=== PATIENT | female | born 1965 | race Caucasian/White ===

== ENCOUNTER 2019-03-27 20:47 | Inpatient (IN) | payer MEDICAID ==
[~2019-03-27] VITALS: Ht 144.8 cm; Wt 38.8 kg
[2019-03-27 22:22] LABS: AMPHET/METH SCREEN,URINE NEGATIVE (NEGATIVE); BARBITURATE SCREEN, URINE NEGATIVE (NEGATIVE); BENZODIAZEPINES SCREEN,URINE POSITIVE (NEGATIVE); CANNABINOID SCREEN,URINE POSITIVE (NEGATIVE); COCAINE SCREEN,URINE NEGATIVE (NEGATIVE); METHADONE SCREEN, URINE NEGATIVE (NEGATIVE); OPIATE SCREEN,URINE NEGATIVE (NEGATIVE)
[2019-03-27 22:26] LABS: PHENCYCLIDINE SCREEN,URINE NEGATIVE (NEGATIVE)
[2019-03-27 22:39] LABS: BASOPHILS % (AUTO) 0.4 % (0.0-2.0); EOSINOPHILS % (AUTO) 0.2 % (1.0-6.0); HEMATOCRIT 36.3 % (36-46); HEMOGLOBIN 11.4 g/dL (12.0-16.0); LYMPHOCYTES # (AUTO) 2.5 K/uL (1.0-4.8); LYMPHOCYTES % (AUTO) 13.7 % (22.0-44.0); MEAN CORPUSCULAR HEMOGLOBIN 24.2 pg (26.0-34.0); MEAN CORPUSCULAR HGB CONC 31.5 G/dL (31.0-37.0); MEAN CORPUSCULAR VOLUME 77 fL (80-100); MONOCYTES # (AUTO) 1.8 K/uL (0.1-1.0); MONOCYTES % (AUTO) 9.8 % (2.0-9.0); NEUTROPHILS % (AUTO) 75.9 % (40.0-70.0); PLATELET COUNT (AUTO) 472 K/uL (150-450); RED BLOOD CELL COUNT(AUTO) 4.72 MIL/uL (4.00-5.20); RED CELL DISTRIBUTION WIDTH 14.5 % (11.5-14.5)
[2019-03-27] MEDS ORDERED: LORazepam 2 MG/ML VIAL IM ONE (22:45)
[2019-03-27] MEDS ORDERED: HALOPERIDOL LACTATE 5 MG/ML VIAL IM ONE (22:45)
[2019-03-27] MEDS ORDERED: DiphenhydrAMINE HCL 50 MG/ML VIAL IM ONE (22:45)
[2019-03-27 22:48] LABS: ANION GAP 13 mmol/L (8-16); CARBON DIOXIDE 25 mmol/L (22-29); CHLORIDE 95 mmol/L (98-107); CREATININE 1.61 mg/dL (0.60-1.30); GLOMERULAR FILTR. RATE CALC 33 mL/min (>60); GLUCOSE,RANDOM 110 mg/dL (70-110); POTASSIUM 5.4 mmol/L (3.5-5.1); SODIUM SERUM 133 mmol/L (136-145); UREA NITROGEN, BLOOD 34 mg/dL (7-18)
[2019-03-27 22:54] LABS: ALANINE AMINOTRANSFERASE 35 U/L (12-78); ALBUMIN 4.1 g/dL (3.4-5.0); ALKALINE PHOSPHATASE 127 U/L (46-116); ASPARTATE AMINOTRANSFERASE 47 U/L (15-37); BILIRUBIN,TOTAL 1.6 mg/dL (0.1-1.0); TOTAL PROTEIN, SERUM 8.8 g/dL (6.4-8.2)
[2019-03-28] MEDS ORDERED: LACTULOSE 20 GM/30 ML SOLUTION UDCUP PO ONE (00:15)
[2019-03-28 03:28] LABS: APPEARANCE,URINE CLEAR (CLEAR); BILIRUBIN,URINE NEGATIVE (NEGATIVE); GLUCOSE, URINE (UA) NEGATIVE (NEGATIVE); KETONES,URINE TRACE mg/dL (NEGATIVE); LEUKOCYTE ESTERASE ,URINE NEGATIVE (NEGATIVE); NITRATE,URINE NEGATIVE (NEGATIVE); OCCULT BLOOD,URINE NEGATIVE (NEGATIVE); PROTEIN,URINE NEGATIVE (NEGATIVE); UROBILINOGEN,URINE 0.2 mg/dL (<=1.0)
[2019-03-28] MEDS ORDERED: NICOTINE 14 MG/24 HOUR PATCH TD PRN (11:15)
[2019-03-28] MEDS ORDERED: ACETAMINOPHEN 325 MG TABLET PO PRN (11:15)
[2019-03-28] MEDS ORDERED: DOCUSATE SODIUM 100 MG CAPSULE PO PRN (11:15)
[2019-03-28] MEDS ORDERED: ONDANSETRON HCL 4 MG TABLET PO PRN (11:15)
[2019-03-28] MEDS ORDERED: LOPERAMIDE HCL 2 MG CAPSULE PO PRN (11:15)
[2019-03-28] MEDS ORDERED: MAG HYDROX/AL HYDROX/SIMETH ES 30 ML SUSPENSION UDCUP PO PRN (11:15)
[2019-03-28] MEDS ORDERED: GuaiFENesin/D-METHORPHAN [SUGAR-FREE] 200-20MG/10 ML SYRUP UDCUP PO PRN (11:15)
[2019-03-28] MEDS ORDERED: CloNIDine HCL 0.1 MG TABLET PO PRN (11:15)
[2019-03-28] MEDS ORDERED: PETROLATUM,WHITE 28 GM JELLY TP PRN (11:15)
[2019-03-28] MEDS ORDERED: ALBUTEROL SULFATE HFA 90 MCG/PUFF 8 GM INHALER IH PRN (11:15)
[2019-03-28] MEDS ORDERED: MAGNESIUM HYDROXIDE SUSPENSION 30 ML UDCUP PO PRN (11:15)
[2019-03-28 15:46] LABS: CALCIUM, TOTAL 9.5 mg/dL (8.8-10.5); CREATININE 1.05 mg/dL (0.60-1.30)
[2019-03-28 15:53] LABS: ALBUMIN 3.2 g/dL (3.4-5.0); BILIRUBIN,TOTAL 1.3 mg/dL (0.1-1.0); TOTAL PROTEIN, SERUM 7.8 g/dL (6.4-8.2)
[2019-03-28] MEDS: SODIUM CHLORIDE 1 GM TABLET PO SCH (19:13)
[2019-03-28 19:42] VITALS: BP 118/73
[2019-03-28] MEDS: CEPHALEXIN MONOHYDRATE 500 MG CAPSULE PO SCH (23:39)
[2019-03-29 06:03] LABS: HEMOGLOBIN A1C 6.2 % (4.5-6.2)
[2019-03-29 06:47] LABS: THYROID STIMULATING HORMONE 3.19 uIU/mL (0.36-3.74)
[2019-03-29] MEDS: CEPHALEXIN MONOHYDRATE 500 MG CAPSULE PO SCH ×3 (08:14→23:40)
[2019-03-29] MEDS: SULFAMETHOX/TRIMETH DS 800-160 MG/TABLET PO SCH ×2 (08:14→17:08)
[2019-03-29] MEDS: SODIUM CHLORIDE 1 GM TABLET PO SCH ×2 (09:00→17:08)
[2019-03-29 09:40] VITALS: BP 125/83
[2019-03-29] MEDS: LACTULOSE 20 GM/30 ML SOLUTION UDCUP PO SCH ×2 (09:50→17:08)
[2019-03-29] MEDS: LORazepam 2 MG TABLET PO PRN ×2 (09:50→17:12)
[2019-03-29 17:14] VITALS: BP 129/88
[2019-03-30 06:29] LABS: CALCIUM, TOTAL 8.7 mg/dL (8.8-10.5); CREATININE 0.98 mg/dL (0.60-1.30); POTASSIUM 3.9 mmol/L (3.5-5.1)
[2019-03-30] MEDS: SODIUM CHLORIDE 1 GM TABLET PO SCH ×2 (08:37→16:32)
[2019-03-30] MEDS: SULFAMETHOX/TRIMETH DS 800-160 MG/TABLET PO SCH ×2 (08:37→16:32)
[2019-03-30] MEDS: CEPHALEXIN MONOHYDRATE 500 MG CAPSULE PO SCH ×2 (08:37→16:32)
[2019-03-30] MEDS: LACTULOSE 20 GM/30 ML SOLUTION UDCUP PO SCH (08:37)
[2019-03-30] MEDS: LORazepam 2 MG TABLET PO PRN ×2 (08:41→18:08)
[2019-03-30 09:31] VITALS: BP 124/84
[2019-03-30] MEDS: OMEPRAZOLE 20 MG CAPSULE PO SCH (16:32)
[2019-03-30] MEDS: FUROSEMIDE 40 MG TABLET PO SCH (16:32)
[2019-03-30] MEDS: OLANZapine 5 MG TABLET PO SCH (16:32)
[2019-03-30] MEDS: SPIRONOLACTONE 50 MG TABLET PO SCH (16:32)
[2019-03-30 16:45] VITALS: BP 129/79
[2019-03-31] MEDS: CEPHALEXIN MONOHYDRATE 500 MG CAPSULE PO SCH ×3 (00:07→16:07)
[2019-03-31 05:51] LABS: BASOPHILS % (AUTO) 0.5 % (0.0-2.0); EOSINOPHILS % (AUTO) 1.4 % (1.0-6.0); HEMATOCRIT 35.3 % (36-46); HEMOGLOBIN 11.3 g/dL (12.0-16.0); LYMPHOCYTES # (AUTO) 2.5 K/uL (1.0-4.8); LYMPHOCYTES % (AUTO) 33.4 % (22.0-44.0); MEAN CORPUSCULAR HEMOGLOBIN 24.4 pg (26.0-34.0); MEAN CORPUSCULAR VOLUME 76 fL (80-100); MONOCYTES # (AUTO) 0.6 K/uL (0.1-1.0); MONOCYTES % (AUTO) 8.5 % (2.0-9.0); NEUTROPHILS # (AUTO) 4.1 K/uL (1.8-7.7); NEUTROPHILS % (AUTO) 56.2 % (40.0-70.0); PLATELET COUNT (AUTO) 331 K/uL (150-450); RED BLOOD CELL COUNT(AUTO) 4.63 MIL/uL (4.00-5.20); RED CELL DISTRIBUTION WIDTH 14.5 % (11.5-14.5)
[2019-03-31] MEDS: OLANZapine 5 MG TABLET PO SCH ×2 (08:13→16:08)
[2019-03-31] MEDS: OMEPRAZOLE 20 MG CAPSULE PO SCH ×2 (08:13→16:07)
[2019-03-31] MEDS: SODIUM CHLORIDE 1 GM TABLET PO SCH ×2 (08:13→16:07)
[2019-03-31] MEDS: URSODIOL 300 MG CAPSULE PO SCH (08:14)
[2019-03-31] MEDS: SPIRONOLACTONE 50 MG TABLET PO SCH ×2 (08:14→16:08)
[2019-03-31] MEDS: FUROSEMIDE 40 MG TABLET PO SCH ×2 (08:15→16:08)
[2019-03-31] MEDS: SULFAMETHOX/TRIMETH DS 800-160 MG/TABLET PO SCH ×2 (08:15→16:08)
[2019-03-31] MEDS: LACTULOSE 20 GM/30 ML SOLUTION UDCUP PO SCH (08:15)
[2019-03-31] MEDS: LORazepam 2 MG TABLET PO PRN ×2 (08:17→18:41)
[2019-03-31 13:35] VITALS: BP 112/58
[2019-03-31 16:00] VITALS: BP 122/73
[2019-03-31] MEDS: ZOLPIDEM TARTRATE 10 MG TABLET PO PRN (21:06)
[2019-04-01] MEDS: CEPHALEXIN MONOHYDRATE 500 MG CAPSULE PO SCH ×4 (00:08→23:39)
[2019-04-01] MEDS: LORazepam 2 MG TABLET PO PRN ×3 (06:18→18:08)
[2019-04-01] MEDS: URSODIOL 300 MG CAPSULE PO SCH (08:14)
[2019-04-01] MEDS: SODIUM CHLORIDE 1 GM TABLET PO SCH ×2 (08:14→16:13)
[2019-04-01] MEDS: SPIRONOLACTONE 50 MG TABLET PO SCH ×2 (08:15→16:13)
[2019-04-01] MEDS: OMEPRAZOLE 20 MG CAPSULE PO SCH ×2 (08:15→16:13)
[2019-04-01] MEDS: OLANZapine 5 MG TABLET PO SCH ×2 (08:15→16:12)
[2019-04-01] MEDS: FUROSEMIDE 40 MG TABLET PO SCH ×2 (08:15→16:13)
[2019-04-01] MEDS: SULFAMETHOX/TRIMETH DS 800-160 MG/TABLET PO SCH ×2 (08:22→16:13)
[2019-04-01] MEDS: LACTULOSE 20 GM/30 ML SOLUTION UDCUP PO SCH (08:23)
[2019-04-01 09:33] VITALS: BP 152/96
[2019-04-01 12:29] VITALS: BP 136/84
[2019-04-01 16:59] VITALS: BP 106/75
[2019-04-01 20:03] VITALS: BP 142/94
[2019-04-01] MEDS: IBUPROFEN 400 MG TABLET PO PRN (20:03)
[2019-04-01] MEDS: MELATONIN 5 MG TABLET PO SCH (20:04)
[2019-04-02] MEDS: LACTULOSE 20 GM/30 ML SOLUTION UDCUP PO SCH (08:27)
[2019-04-02] MEDS: CEPHALEXIN MONOHYDRATE 500 MG CAPSULE PO SCH ×2 (08:27→16:24)
[2019-04-02] MEDS: OMEPRAZOLE 20 MG CAPSULE PO SCH ×2 (08:28→16:25)
[2019-04-02] MEDS: URSODIOL 300 MG CAPSULE PO SCH (08:28)
[2019-04-02] MEDS: OLANZapine 5 MG TABLET PO SCH ×2 (08:28→16:25)
[2019-04-02] MEDS: SODIUM CHLORIDE 1 GM TABLET PO SCH ×2 (08:28→16:24)
[2019-04-02] MEDS: FUROSEMIDE 40 MG TABLET PO SCH ×2 (08:28→16:24)
[2019-04-02] MEDS: SULFAMETHOX/TRIMETH DS 800-160 MG/TABLET PO SCH ×2 (08:28→16:24)
[2019-04-02] MEDS: SPIRONOLACTONE 50 MG TABLET PO SCH ×2 (08:29→16:25)
[2019-04-02 09:11] VITALS: BP 110/73
[2019-04-02] MEDS: LORazepam 2 MG TABLET PO PRN ×2 (13:00→18:20)
[2019-04-02] MEDS: IBUPROFEN 400 MG TABLET PO PRN (15:56)
[2019-04-02 16:00] VITALS: BP 126/81
[2019-04-02] MEDS: MELATONIN 5 MG TABLET PO SCH (20:09)
[2019-04-03] MEDS: CEPHALEXIN MONOHYDRATE 500 MG CAPSULE PO SCH ×4 (00:17→23:58)
[2019-04-03 06:20] VITALS: BP 118/67
[2019-04-03] MEDS: IBUPROFEN 400 MG TABLET PO PRN (06:25)
[2019-04-03 07:25] LABS: CALCIUM, TOTAL 9.9 mg/dL (8.8-10.5); CREATININE 1.74 mg/dL (0.60-1.30); POTASSIUM 5.1 mmol/L (3.5-5.1)
[2019-04-03] MEDS: OMEPRAZOLE 20 MG CAPSULE PO SCH ×2 (08:37→16:21)
[2019-04-03] MEDS: OLANZapine 5 MG TABLET PO SCH ×2 (08:37→16:15)
[2019-04-03] MEDS: URSODIOL 300 MG CAPSULE PO SCH (08:37)
[2019-04-03] MEDS: SULFAMETHOX/TRIMETH DS 800-160 MG/TABLET PO SCH ×2 (08:37→16:21)
[2019-04-03] MEDS: SODIUM CHLORIDE 1 GM TABLET PO SCH ×2 (08:37→16:15)
[2019-04-03] MEDS: LACTULOSE 20 GM/30 ML SOLUTION UDCUP PO SCH (08:38)
[2019-04-03] MEDS: SPIRONOLACTONE 50 MG TABLET PO SCH ×2 (08:38→16:16)
[2019-04-03] MEDS: FUROSEMIDE 40 MG TABLET PO SCH (08:38)
[2019-04-03 09:10] VITALS: BP 118/60
[2019-04-03] MEDS: LORazepam 2 MG TABLET PO PRN ×3 (12:07→20:32)
[2019-04-03] MEDS: FUROSEMIDE 20 MG TABLET PO SCH (16:21)
[2019-04-03] MEDS: MELATONIN 5 MG TABLET PO SCH (20:33)
[2019-04-03 20:49] VITALS: BP 109/76
[2019-04-04] MEDS: ZOLPIDEM TARTRATE 10 MG TABLET PO PRN (00:09)
[2019-04-04] MEDS: LORazepam 2 MG TABLET PO PRN ×3 (06:37→14:53)
[2019-04-04] MEDS: URSODIOL 300 MG CAPSULE PO SCH (08:12)
[2019-04-04] MEDS: FUROSEMIDE 20 MG TABLET PO SCH ×2 (08:12→19:00)
[2019-04-04] MEDS: SPIRONOLACTONE 50 MG TABLET PO SCH ×2 (08:12→19:03)
[2019-04-04] MEDS: SULFAMETHOX/TRIMETH DS 800-160 MG/TABLET PO SCH ×2 (08:12→20:32)
[2019-04-04] MEDS: CEPHALEXIN MONOHYDRATE 500 MG CAPSULE PO SCH ×2 (08:13→19:00)
[2019-04-04] MEDS: OLANZapine 5 MG TABLET PO SCH (08:16)
[2019-04-04] MEDS: OMEPRAZOLE 20 MG CAPSULE PO SCH ×2 (08:16→19:00)
[2019-04-04] MEDS: LACTULOSE 20 GM/30 ML SOLUTION UDCUP PO SCH (08:19)
[2019-04-04] MEDS: SODIUM CHLORIDE 1 GM TABLET PO SCH ×2 (08:20→19:00)
[2019-04-04 09:43] VITALS: BP 120/78
[2019-04-04] MEDS: HALOPERIDOL 5 MG TABLET PO PRN ×2 (10:41→14:54)
[2019-04-04 16:00] VITALS: BP 113/78
[2019-04-04] MEDS: MELATONIN 5 MG TABLET PO SCH (20:32)
[2019-04-04] MEDS: OLANZapine 7.5 MG TABLET PO SCH (20:33)
[2019-04-05] MEDS: CEPHALEXIN MONOHYDRATE 500 MG CAPSULE PO SCH ×3 (00:05→16:15)
[2019-04-05] MEDS: LORazepam 2 MG TABLET PO PRN ×3 (06:45→16:15)
[2019-04-05] MEDS: HALOPERIDOL 5 MG TABLET PO PRN ×3 (06:47→16:15)
[2019-04-05] MEDS: SULFAMETHOX/TRIMETH DS 800-160 MG/TABLET PO SCH ×2 (08:38→17:09)
[2019-04-05] MEDS: OLANZapine 7.5 MG TABLET PO SCH ×2 (08:38→21:09)
[2019-04-05] MEDS: URSODIOL 300 MG CAPSULE PO SCH (08:38)
[2019-04-05] MEDS: FUROSEMIDE 20 MG TABLET PO SCH ×2 (08:38→17:09)
[2019-04-05] MEDS: SPIRONOLACTONE 50 MG TABLET PO SCH ×2 (08:38→17:09)
[2019-04-05] MEDS: LACTULOSE 20 GM/30 ML SOLUTION UDCUP PO SCH (08:39)
[2019-04-05] MEDS: OMEPRAZOLE 20 MG CAPSULE PO SCH ×2 (08:39→16:16)
[2019-04-05] MEDS: SODIUM CHLORIDE 1 GM TABLET PO SCH ×2 (08:49→16:15)
[2019-04-05 12:19] VITALS: BP 95/66
[2019-04-05 16:15] VITALS: BP 114/71
[2019-04-05] MEDS: MELATONIN 5 MG TABLET PO SCH (21:08)
[2019-04-06] MEDS: CEPHALEXIN MONOHYDRATE 500 MG CAPSULE PO SCH ×3 (00:06→16:12)
[2019-04-06 06:42] LABS: CALCIUM, TOTAL 9.1 mg/dL (8.8-10.5); CREATININE 1.32 mg/dL (0.60-1.30)
[2019-04-06] MEDS: URSODIOL 300 MG CAPSULE PO SCH (07:42)
[2019-04-06] MEDS: HALOPERIDOL 5 MG TABLET PO PRN ×2 (07:42→16:16)
[2019-04-06] MEDS: OMEPRAZOLE 20 MG CAPSULE PO SCH ×2 (07:42→16:12)
[2019-04-06] MEDS: SULFAMETHOX/TRIMETH DS 800-160 MG/TABLET PO SCH ×2 (07:42→16:12)
[2019-04-06] MEDS: OLANZapine 7.5 MG TABLET PO SCH ×2 (07:42→20:45)
[2019-04-06] MEDS: LORazepam 2 MG TABLET PO PRN ×3 (07:42→17:27)
[2019-04-06] MEDS: SPIRONOLACTONE 50 MG TABLET PO SCH ×2 (07:42→16:12)
[2019-04-06] MEDS: FUROSEMIDE 20 MG TABLET PO SCH ×2 (07:42→16:12)
[2019-04-06 08:00] VITALS: BP 105/72
[2019-04-06] MEDS: LACTULOSE 20 GM/30 ML SOLUTION UDCUP PO SCH (10:06)
[2019-04-06] MEDS: SODIUM CHLORIDE 1 GM TABLET PO SCH ×2 (10:06→16:12)
[2019-04-06 19:47] VITALS: BP 119/78
[2019-04-06] MEDS: MELATONIN 5 MG TABLET PO SCH (20:45)
[2019-04-07] MEDS: CEPHALEXIN MONOHYDRATE 500 MG CAPSULE PO SCH ×3 (00:55→17:44)
[2019-04-07] MEDS: OMEPRAZOLE 20 MG CAPSULE PO SCH ×2 (08:17→17:42)
[2019-04-07] MEDS: LORazepam 2 MG TABLET PO PRN ×2 (08:17→13:53)
[2019-04-07] MEDS: URSODIOL 300 MG CAPSULE PO SCH (08:17)
[2019-04-07] MEDS: SULFAMETHOX/TRIMETH DS 800-160 MG/TABLET PO SCH ×2 (08:17→17:43)
[2019-04-07] MEDS: SPIRONOLACTONE 50 MG TABLET PO SCH ×2 (08:19→17:43)
[2019-04-07] MEDS: FUROSEMIDE 20 MG TABLET PO SCH ×2 (08:19→17:43)
[2019-04-07] MEDS: OLANZapine 7.5 MG TABLET PO SCH ×2 (08:20→20:34)
[2019-04-07] MEDS: SODIUM CHLORIDE 1 GM TABLET PO SCH ×2 (08:21→17:43)
[2019-04-07] MEDS: LACTULOSE 20 GM/30 ML SOLUTION UDCUP PO SCH (08:22)
[2019-04-07] MEDS: HALOPERIDOL 5 MG TABLET PO PRN ×2 (11:44→17:47)
[2019-04-07 13:07] VITALS: BP 97/60
[2019-04-07 16:08] VITALS: BP 118/79
[2019-04-07] MEDS: MELATONIN 5 MG TABLET PO SCH (20:34)
[2019-04-08] MEDS: ZOLPIDEM TARTRATE 10 MG TABLET PO PRN (01:59)
[2019-04-08] MEDS: SODIUM CHLORIDE 1 GM TABLET PO SCH ×2 (07:38→16:07)
[2019-04-08] MEDS: FUROSEMIDE 20 MG TABLET PO SCH ×2 (07:38→16:07)
[2019-04-08] MEDS: LORazepam 2 MG TABLET PO PRN ×3 (07:38→18:36)
[2019-04-08] MEDS: OMEPRAZOLE 20 MG CAPSULE PO SCH ×2 (07:38→16:08)
[2019-04-08] MEDS: URSODIOL 300 MG CAPSULE PO SCH (07:38)
[2019-04-08] MEDS: HALOPERIDOL 5 MG TABLET PO PRN ×2 (07:38→12:32)
[2019-04-08] MEDS: OLANZapine 7.5 MG TABLET PO SCH ×2 (07:38→21:08)
[2019-04-08] MEDS: SPIRONOLACTONE 50 MG TABLET PO SCH ×2 (07:39→17:00)
[2019-04-08] MEDS: LACTULOSE 20 GM/30 ML SOLUTION UDCUP PO SCH (07:40)
[2019-04-08 08:00] VITALS: BP 115/71
[2019-04-08 17:52] VITALS: BP 113/78
[2019-04-08] MEDS: MELATONIN 5 MG TABLET PO SCH (21:08)
[2019-04-09] MEDS: URSODIOL 300 MG CAPSULE PO SCH (07:27)
[2019-04-09] MEDS: SODIUM CHLORIDE 1 GM TABLET PO SCH (07:27)
[2019-04-09] MEDS: SPIRONOLACTONE 50 MG TABLET PO SCH (07:27)
[2019-04-09] MEDS: OLANZapine 7.5 MG TABLET PO SCH (07:30)
[2019-04-09] MEDS: LORazepam 2 MG TABLET PO PRN ×2 (07:30→12:49)
[2019-04-09] MEDS: FUROSEMIDE 20 MG TABLET PO SCH (07:30)
[2019-04-09] MEDS: OMEPRAZOLE 20 MG CAPSULE PO SCH (07:30)
[2019-04-09] MEDS: LACTULOSE 20 GM/30 ML SOLUTION UDCUP PO SCH (07:33)
[2019-04-09 08:40] VITALS: BP 120/60
[2019-04-09] MEDS ORDERED: OLAN7.5T9 PO (10:56)
[2019-04-09] MEDS ORDERED: FURO20 PO ×2 (11:30→11:31)
[2019-04-09] MEDS ORDERED: OMEP20 PO (11:35)
[2019-04-09] MEDS ORDERED: NACL1 PO (11:35)
[2019-04-09] MEDS ORDERED: LACT30L PO (11:35)
[2019-04-09] MEDS ORDERED: URSO300C4 PO (11:35)
[2019-04-09] MEDS ORDERED: SPIR50 PO (11:35)
[2019-04-09] MEDS ORDERED: MELA5TAB3 PO (11:35)
[2019-04-09] MEDS: HALOPERIDOL 5 MG TABLET PO PRN (15:11)
== END 2019-04-09 16:15 | disposition left against medical advice (07) | DRG 751 ==
LOC: EMS 20:51 → 3EC 03-28 17:11
PROVIDERS: ADMIT Psychiatry & Neurology Psychiatry; ATTEND Psychiatry & Neurology Psychiatry
DX: F29 Unspecified psychosis not due to a substance or known physiological condition (principal); N17.9 Acute kidney failure, unspecified; E87.1 Hypo-osmolality and hyponatremia; K74.60 Unspecified cirrhosis of liver; Z78.1 Physical restraint status; D56.9 Thalassemia, unspecified; L03.90 Cellulitis, unspecified; Z53.21 Procedure and treatment not carried out due to patient leaving prior to being seen by health care provider; F12.10 Cannabis abuse, uncomplicated; G47.00 Insomnia, unspecified; F13.10 Sedative, hypnotic or anxiolytic abuse, uncomplicated; Z71.51 Drug abuse counseling and surveillance of drug abuser; Z88.8 Allergy status to other drugs, medicaments and biological substances
CPT/HCPCS: 76700; 83036; 84443; G0480; J1200; J1630; J2060

== ENCOUNTER 2019-04-18 16:01 | Emergency (ER) | payer MEDICAID ==
[~2019-04-18] VITALS: Ht 144.8 cm; Wt 40.9 kg
[~2019-04-18 16:01] MED LIST: FURO20 PO; LACT30L PO; MELA5TAB3 PO; NACL1 PO; OLAN7.5T9 PO; OMEP20 PO; SPIR50 PO; URSO300C4 PO
[2019-04-18 16:54] LABS: BASOPHILS % (AUTO) 0.5 % (0.0-2.0); EOSINOPHILS % (AUTO) 0.7 % (1.0-6.0); HEMATOCRIT 35.9 % (36-46); HEMOGLOBIN 11.3 g/dL (12.0-16.0); LYMPHOCYTES # (AUTO) 2.2 K/uL (1.0-4.8); LYMPHOCYTES % (AUTO) 18.9 % (22.0-44.0); MEAN CORPUSCULAR HGB CONC 31.6 G/dL (31.0-37.0); MEAN CORPUSCULAR VOLUME 76 fL (80-100); MONOCYTES # (AUTO) 1.2 K/uL (0.1-1.0); NEUTROPHILS # (AUTO) 8.2 K/uL (1.8-7.7); NEUTROPHILS % (AUTO) 69.9 % (40.0-70.0); PLATELET COUNT (AUTO) 426 K/uL (150-450); RED BLOOD CELL COUNT(AUTO) 4.73 MIL/uL (4.00-5.20)
[2019-04-18 16:57] LABS: APPEARANCE,URINE CLEAR (CLEAR); BILIRUBIN,URINE NEGATIVE (NEGATIVE); GLUCOSE, URINE (UA) NEGATIVE (NEGATIVE); KETONES,URINE NEGATIVE (NEGATIVE); LEUKOCYTE ESTERASE ,URINE NEGATIVE (NEGATIVE); NITRATE,URINE NEGATIVE (NEGATIVE); OCCULT BLOOD,URINE NEGATIVE (NEGATIVE); PH,URINE 5.5 (5.0-8.0); PROTEIN,URINE NEGATIVE (NEGATIVE); UROBILINOGEN,URINE 0.2 mg/dL (<=1.0)
[2019-04-18 17:01] LABS: AMPHET/METH SCREEN,URINE NEGATIVE (NEGATIVE); BARBITURATE SCREEN, URINE NEGATIVE (NEGATIVE); BENZODIAZEPINES SCREEN,URINE NEGATIVE (NEGATIVE); CANNABINOID SCREEN,URINE POSITIVE (NEGATIVE); COCAINE SCREEN,URINE NEGATIVE (NEGATIVE); METHADONE SCREEN, URINE NEGATIVE (NEGATIVE); OPIATE SCREEN,URINE NEGATIVE (NEGATIVE)
[2019-04-18 17:02] LABS: PHENCYCLIDINE SCREEN,URINE NEGATIVE (NEGATIVE)
[2019-04-18 17:03] LABS: ANION GAP 11 mmol/L (8-16); CALCIUM, TOTAL 9.4 mg/dL (8.8-10.5); CARBON DIOXIDE 25 mmol/L (22-29); CHLORIDE 99 mmol/L (98-107); CREATININE 1.04 mg/dL (0.60-1.30); GLOMERULAR FILTR. RATE CALC 55 mL/min (>60); GLUCOSE,RANDOM 107 mg/dL (70-110); POTASSIUM 3.2 mmol/L (3.5-5.1); SODIUM SERUM 135 mmol/L (136-145); UREA NITROGEN, BLOOD 29 mg/dL (7-18)
[2019-04-18 17:09] LABS: ALANINE AMINOTRANSFERASE 25 U/L (12-78); ALBUMIN 4.3 g/dL (3.4-5.0); ALKALINE PHOSPHATASE 141 U/L (46-116); ASPARTATE AMINOTRANSFERASE 24 U/L (15-37); BILIRUBIN,TOTAL 0.8 mg/dL (0.1-1.0); TOTAL PROTEIN, SERUM 8.4 g/dL (6.4-8.2)
[2019-04-18] MEDS ORDERED: POTASSIUM CHLORIDE 20 MEQ ER TABLET PO ONE (18:30)
[2019-04-18] MEDS ORDERED: LACTULOSE 20 GM/30 ML SOLUTION UDCUP PO ONE (18:30)
[2019-04-18] MEDS ORDERED: SPIRONOLACTONE 25 MG TABLET PO ONE (18:30)
[2019-04-18] MEDS ORDERED: URSODIOL 300 MG CAPSULE PO ONE (18:30)
[2019-04-18] MEDS ORDERED: FURO80 PO (18:35)
[2019-04-18 19:00] VITALS: BP 140/84
== END 2019-04-18 19:07 | disposition home or self-care (01) ==
LOC: EMS 16:02
DX: R45.1 Restlessness and agitation (principal); E87.6 Hypokalemia; K74.60 Unspecified cirrhosis of liver; R18.8 Other ascites; G47.00 Insomnia, unspecified; F20.9 Schizophrenia, unspecified; F17.210 Nicotine dependence, cigarettes, uncomplicated; F12.90 Cannabis use, unspecified, uncomplicated; Z91.19 Patient's noncompliance with other medical treatment and regimen; Z79.899 Other long term (current) drug therapy
CPT/HCPCS: 36415; 80053; 80307; 81003; 85025; 99284; G0480

== ENCOUNTER 2020-04-23 15:00 | Emergency (ER) | payer MEDICAID, OTHER ==
[~2020-04-23] VITALS: Ht 144.8 cm; Wt 38.6 kg
[~2020-04-23 15:00] MED LIST changes: -FURO20 PO; +FURO80 PO; -MELA5TAB3 PO; -NACL1 PO; -URSO300C4 PO
[2020-04-23 15:40] LABS: BASOPHILS % (AUTO) 0.7 % (0.0-2.0); EOSINOPHILS % (AUTO) 0.6 % (1.0-6.0); HEMATOCRIT 36.1 % (36-46); HEMOGLOBIN 11.6 g/dL (12.0-16.0); LYMPHOCYTES % (AUTO) 25.9 % (22.0-44.0); MEAN CORPUSCULAR HEMOGLOBIN 23.6 pg (26.0-34.0); MEAN CORPUSCULAR VOLUME 74 fL (80-100); MONOCYTES % (AUTO) 8.4 % (2.0-9.0); NEUTROPHILS # (AUTO) 7.4 K/uL (1.8-7.7); NEUTROPHILS % (AUTO) 64.4 % (40.0-70.0); PLATELET COUNT (AUTO) 391 K/uL (150-450); RED BLOOD CELL COUNT(AUTO) 4.91 MIL/uL (4.00-5.20)
[2020-04-23 16:03] LABS: ANION GAP 11 mmol/L (8-16); CALCIUM, TOTAL 9.1 mg/dL (8.8-10.5); CARBON DIOXIDE 26 mmol/L (22-29); CHLORIDE 94 mmol/L (98-107); CREATININE 1.26 mg/dL (0.60-1.30); GLOMERULAR FILTR. RATE CALC 44 mL/min (>60); GLUCOSE,RANDOM 85 mg/dL (70-110); SODIUM SERUM 131 mmol/L (136-145); UREA NITROGEN, BLOOD 22 mg/dL (7-18)
[2020-04-23 16:15] LABS: AMPHET/METH SCREEN,URINE NEGATIVE (NEGATIVE); BARBITURATE SCREEN, URINE NEGATIVE (NEGATIVE); BENZODIAZEPINES SCREEN,URINE NEGATIVE (NEGATIVE); CANNABINOID SCREEN,URINE POSITIVE (NEGATIVE); COCAINE SCREEN,URINE NEGATIVE (NEGATIVE); METHADONE SCREEN, URINE NEGATIVE (NEGATIVE); OPIATE SCREEN,URINE NEGATIVE (NEGATIVE)
[2020-04-23 16:18] LABS: PHENCYCLIDINE SCREEN,URINE NEGATIVE (NEGATIVE)
[2020-04-23 16:19] LABS: ALANINE AMINOTRANSFERASE 38 U/L (12-78); ALBUMIN 4.2 g/dL (3.4-5.0); ALKALINE PHOSPHATASE 133 U/L (46-116); ASPARTATE AMINOTRANSFERASE 32 U/L (15-37); BILIRUBIN,TOTAL 0.7 mg/dL (0.1-1.0); TOTAL PROTEIN, SERUM 8.9 g/dL (6.4-8.2)
[2020-04-23 17:02] VITALS: BP 127/87
[2020-04-23] MEDS ORDERED: NICOTINE 7 MG/24 HOUR PATCH TD ONE (18:00)
== END 2020-04-23 18:11 | disposition left against medical advice (07) ==
LOC: EMS 15:09
DX: F29 Unspecified psychosis not due to a substance or known physiological condition (principal); Z53.21 Procedure and treatment not carried out due to patient leaving prior to being seen by health care provider
CPT/HCPCS: 36415; 80053; 80307; 85025; G0480

== ENCOUNTER 2020-07-20 16:38 | Emergency (ER) | payer OTHER ==
[~2020-07-20] VITALS: Ht 147.3 cm; Wt 52.3 kg
[2020-07-20 17:08] VITALS: BP 127/70
[2020-07-20] MEDS ORDERED: ACETAMINOPHEN 500 MG TABLET PO ONE (17:15)
[2020-07-20] MEDS ORDERED: LORazepam 2 MG TABLET PO ONE (18:00)
[2020-07-20] MEDS ORDERED: HALOPERIDOL 5 MG TABLET PO ONE (18:00)
== END 2020-07-20 18:40 | disposition home or self-care (01) ==
LOC: EMS 16:38
DX: S52.591A Other fractures of lower end of right radius, initial encounter for closed fracture (principal); R45.1 Restlessness and agitation; F17.210 Nicotine dependence, cigarettes, uncomplicated; F12.90 Cannabis use, unspecified, uncomplicated; Z79.899 Other long term (current) drug therapy; W18.39XA Other fall on same level, initial encounter; Y93.89 Activity, other specified; Y92.89 Other specified places as the place of occurrence of the external cause; Y99.8 Other external cause status
CPT/HCPCS: 73090-TC; 73110-TC; Z7502; Z7610